=== PATIENT | female | born 1945 | race Caucasian/White ===

== ENCOUNTER 2021-04-12 15:47 | Inpatient (IN) ==
[2021-04-12 16:49] LABS: Hematocrit (blood only) 37.1 % (37-47); Hemoglobin 12.5 g/dL (12.0-16.0); Mean Corpuscular Hemoglobin 25.8 pg (25-34); Mean Corpuscular Hgb Conc 33.7 g/dL (32-36); Mean Corpuscular Volume 76.5 fL (80-100); Platelet Count 130 K/uL (130-400); RDW Coefficient of Variation 16.3 % (11.5-14.5); RDW Standard Deviation 45.5 fL (36.4-46.3); Red Blood Count 4.85 M/uL (4.2-5.4); White Blood Count 7.13 K/uL (4.8-10.8)
[2021-04-12 16:58] LABS: Alanine Aminotransferase 16 U/L (12-78); Albumin Level 3.9 gm/dl (3.4-5.0); Aspartate Aminotransferase 18 U/L (15-37); BUN Creatinine Ratio 18.3 (10-20); Blood Urea Nitrogen 30 mg/dl (7-18); Calcium 9.3 mg/dl (8.5-10.1); Carbon Dioxide 25 mmol/L (21-32); Chloride 106 mmol/L (98-107); Est GFR (African American) 35.6 ml/min; Est GFR (Non-African American) 30.7 ml/min; Glucose 82 mg/dl (70-99); Magnesium 1.6 mg/dl (1.8-2.4); Potassium 3.5 mmol/L (3.5-5.1); Sodium 138 mmol/L (136-145)
[2021-04-12 17:00] LABS: INR 1.1 (0.9-1.1); Partial Thromboplastin Time 25.6 Seconds (21.0-31.0); Prothrombin Time 10.9 Seconds (9.0-12.0)
[2021-04-12 17:01] LABS: Albumin Globulin Ratio 0.9 (0.9-2); Alkaline Phosphatase 58 U/L (45-117); Bilirubin,Total 0.7 mg/dl (0.2-1); Globulin 4.4 gm/dl (2.5-4.0); Total Protein 8.3 gm/dl (6.4-8.2)
--- NOTE | 2021-04-12 17:04 | Emergency Department Note ---
History of Present Illness General Chief complaint: Stroke/CVA Symptoms Stated complaint: DIZZINESS Time Seen by Provider: 04/12/21 16:40 History of Present Illness 75-year-old female who presents to the ED with a chief complaint of some difficulty with her stability over the past week or so. It seems to have p rogressively worsened according to the . The patient's also reports that she has been having more difficulty when she takes her pills. She has been gagging more than usual. She also has a decreased appetite. Her symptoms have been somewhat subtle for the past week. She had an outpatient CT scan of her brain today because of this instability that showed a 6 mm acute intraparenchymal hemorrhage in the left thalamus with some mild vasogenic edema. She was sent to the ED for evaluation. Home Medications Medication Instructions Recorded Confirmed Type nystatin 100,000 unit/gram topical 1 appln TOP TID PRN #30 gm 05/19/19 04/12/21 Rx cream triamcinolone acetonide 0.1 % 1 appln TOP TID PRN #30 gm 05/19/19 04/12/21 Rx topical ointment biotin 5,000 mcg sublingual tablet 5,000 mcg SUBLINGUAL DAILY 05/05/20 04/12/21 History fluconazole 200 mg tablet 200 mg PO QPM tab 05/05/20 04/12/21 History insulin glargine 100 unit/mL (3 20 - 40 units SUBCUT AMPM ml 05/05/20 04/12/21 History mL) subcutaneous pen (Basaglar KwikPen U-100 Insulin) magnesium oxide 400 mg PO DAILY tab 05/05/20 04/12/21 History denosumab 60 mg/mL subcutaneous 60 mg SUBCUT UD 08/01/20 04/12/21 History syringe (Prolia) entecavir 0.5 mg tablet 0.5 mg PO QAM 08/01/20 04/12/21 History pen needle, diabetic 32 gauge x #500 ea 08/08/20 04/12/21 Rx 532" (BD Ultra-Fine Susan Pen Needle) metoprolol tartrate 50 mg tablet 75 mg PO BID #180 tab 09/08/20 04/12/21 Rx omeprazole 20 mg capsule,delayed 20 mg PO QAM #90 cap 10/04/20 04/12/21 Rx release blood sugar diagnostic (FreeStyle #10 ea 11/03/20 04/12/21 History Lite Strips) insulin lispro 100 unit/mL 15 unit SUBCUT TID ml 11/03/20 04/12/21 History subcutaneous pen (Humalog KwikPen (U-100) Insulin) cholecalciferol (vitamin D3) 125 125 mcg PO DAILY #90 cap 11/08/20 04/12/21 Rx mcg (5,000 unit) capsule atorvastatin 40 mg tablet 40 mg PO QPM 01/10/21 04/12/21 History tacrolimus 0.5 mg capsule, 0.5 mg PO BID cap 01/10/21 04/12/21 History immediate-release aspirin 81 mg tablet,delayed 81 mg PO QPM 02/07/21 04/12/21 History release (Adult Low Dose Aspirin) trazodone 50 mg tablet 100 mg PO HS #60 tab 02/26/21 04/12/21 Rx hydralazine 50 mg tablet 75 mg PO TID 90 Days #405 tab 03/02/21 04/12/21 Rx losartan 100 mg tablet 100 mg PO QPM 04/12/21 04/12/21 History Allergies Allergy/AdvReac Type Severity Reaction Status Date / Time latex Allergy Intermediate ITCHING Verified 04/12/21 16:31 AND LOCALIZED SWELLING Penicillins Allergy Intermediate RASH Verified 04/12/21 16:31 amlodipine Allergy Mild swelling Verified 04/12/21 16:31 iodine Allergy Mild RASH Verified 04/12/21 16:31 lisinopril AdvReac Intermediate cough Verified 04/12/21 16:31 Past Med/Surg History Medical History Chronic cough DM type 2 (diabetes mellitus, type 2) IDDM Esophageal varices with hemorrhage HX OF Fall Femur fracture, right nondisplaced periprosthetic fracture 01/2021 r/t fall --> no surgical intervention Femur fracture, right History of colon polyps History of kidney stones History of stroke (10/18/19) 08/2019; balance issues HLD (hyperlipidemia) HTN (hypertension) 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 current use of immunosuppressive drug Immunosuppressive medications due to liver transplant Lung nodule being monitored Nasal congestion reason for abx [place] (nonalcoholic steatohepatitis) s/p liver transplant Nausea liver transplant meds induced Palmar erythema Sleep apnea CPAP Surgical History H/O sinus surgery History of appendectomy History of bladder surgery History of colonoscopy History of esophagogastroduodenoscopy (EGD) History of hemorrhoidectomy History of hysterectomy History of liver transplant 2019 History of right hip replacement History of tonsillectomy Right femoral fracture 08/19/2019 in [place] Post Sx -Rt hip Surgery Family History Aunt Breast cancer Mother Malignant neoplasm cervix Father Pancreatic cancer Grandmother (Paternal) No problems noted. 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 Beliefs That Will Affect Care: Worship Worship Beliefs: [facility] marital status: Current Living Situation: Spouse current occupational status: retired Feels Safe at Home: Yes Childhood Exposure to Second-Hand Smoke: Yes Dental Care, Regularly: Yes Physical Activity Frequency: Does not Exercise Seatbelt Use: always Sunscreen Use: Yes Assistive Devices: CPAP, Glasses and Walker Review of Systems A total of 10 systems reviewed and were otherwise negative Physical Exam Vital Signs Vital Signs - 24 hr 04/12/21 16:00 04/12/21 16:03 04/12/21 16:14 Temperature Source Oral Pulse Rate 63 63 Pulse Rate from SpO2 Sensor 62 Pulse Rhythm Regular Pulse Strength Normal Respiratory Rate 18 20 Respiratory Effort / Characteristics Non-Labored Spontaneous Respiratory Depth Normal Respiratory Pattern Regular Blood Pressure 190/86 H 190/86 H Blood Pressure Mean 120 120 Blood Pressure Position Sitting Pulse Oximetry 98 98 98 Oxygen Delivery Method Room Air Room Air Room Air Sepsis Recent Fever Within 48 Hours No Sepsis New/Unexplained Change in Mental Status No Sepsis Action Taken by Nursing No Action Required 04/12/21 16:41 04/12/21 17:00 04/12/21 17:31 Temperature Source Pulse Rate 61 60 Pulse Rate from SpO2 Sensor 61 61 Pulse Rhythm Pulse Strength Respiratory Rate 16 16 Respiratory Effort / Characteristics Respiratory Depth Respiratory Pattern Blood Pressure 174/96 H 165/81 H Blood Pressure Mean 122 109 Blood Pressure Position Pulse Oximetry 97 97 93 Oxygen Delivery Method Room Air Room Air Sepsis Recent Fever Within 48 Hours Sepsis New/Unexplained Change in Mental Status Sepsis Action Taken by Nursing 04/12/21 17:41 04/12/21 17:50 04/12/21 18:00 Temperature Source Pulse Rate 66 69 71 Pulse Rate from SpO2 Sensor 66 69 72 Pulse Rhythm Pulse Strength Respiratory Rate 22 18 22 Respiratory Effort / Characteristics Respiratory Depth Respiratory Pattern Blood Pressure 199/90 H 151/76 H 143/76 H Blood Pressure Mean 126 101 98 Blood Pressure Position Pulse Oximetry 97 96 98 Oxygen Delivery Method Room Air Room Air Room Air Sepsis Recent Fever Within 48 Hours Sepsis New/Unexplained Change in Mental Status Sepsis Action Taken by Nursing 04/12/21 18:10 Temperature Source Pulse Rate 73 Pulse Rate from SpO2 Sensor 72 Pulse Rhythm Pulse Strength Respiratory Rate 23 Respiratory Effort / Characteristics Respiratory Depth Respiratory Pattern Blood Pressure 139/83 Blood Pressure Mean 101 Blood Pressure Position Pulse Oximetry 98 Oxygen Delivery Method Sepsis Recent Fever Within 48 Hours Sepsis New/Unexplained Change in Mental Status Sepsis Action Taken by Nursing CONSTITUTIONAL/VITAL SIGNS: Reviewed / noted above. GENERAL: Non-toxic in appearance. INTEGUMENTARY: Warm, dry, and [place]. HEAD: Normocephalic. EYES: without scleral icterus or trauma. ENT/OROPHARYNX: clear and moist. LYMPHADENOPATHY/NECK: Is supple without lymphadenopathy or meningismus. RESPIRATORY: Clear to auscultation bilaterally. No increased work of breathing. CARDIOVASCULAR: Regular rate and rhythm. GI/ABDOMEN: Soft and nontender. No organomegaly or pulsatile mass. EXTREMITIES: Warm and well perfused. BACK: No CVA tenderness. NEUROLOGICAL: Intact without focal deficits. No facial droop. Cranial nerves II through XII are intact. No pronator drift. Cerebellar testing is grossly normal. No visual changes. PSYCHIATRIC: normal affect. MUSCULOSKELETAL: Normally developed with good muscle tone. TRIAGE NURSING DOCUMENTATION REVIEWED. Course Administered Medications Nicardipine HCl 25 mg/ Sodium (Chloride) 250 mls @ 50 mls/hr IV .Q5H [facility]; Protocol Stop: 05/12/21 17:29 Last Admin: 04/12/21 17:37 Dose: 5 mg/hr, 50 mls/hr Documented by: [id number] Cosigned by: [id number] Discontinued Medications Glucose (Glucose 10 Tabs/Tube) Confirm Administered Dose 10 tabs PO .[facility] Stop: 04/12/21 17:35 Last Admin: 04/12/21 17:38 Dose: 10 tabs Documented by: [id number] Miscellaneous (Stat Iv Infusion Titration Per Protocol) 1 ea N/A NOW STA Stop: 04/12/21 17:18 Last Admin: 04/12/21 17:38 Dose: 1 ea Documented by: [id number] Medical Decision Making Differential Diagnosis Differential includes acute coronary syndrome, myocardial infarction, CVA, TIA, anemia, infection, pneumonia, UTI, pyelonephritis, poor nutrition, dehydration, electrolyte disturbance,hypoglycemia. Medical Records Attestation: I reviewed the patient's medical records. Home Medications Current Medication List: was personally reviewed by me Laboratory Data Attestation: I reviewed the patient's lab results. Result diagrams: 04/12/21 16:10 04/12/21 16:10 Lab Results 04/12/21 04/12/21 04/12/21 Range/Units 16:10 16:10 16:10 WBC 7.13 (4.8-10.8) K/uL RBC 4.85 (4.2-5.4) M/uL Hgb 12.5 (12.0-16.0) g/dL Hct 37.1 (37-47) % MCV 76.5 L (80-100) fL MCH 25.8 (25-34) pg MCHC 33.7 (32-36) g/dL RDW Std Deviation 45.5 (36.4-46.3) fL RDW Coeff of Sindy 16.3 H (11.5-14.5) % Plt Count 130 (130-400) K/uL MPV 10.0 (7.4-10.4) fL PT 10.9 (9.0-12.0) Seconds INR 1.1 (0.9-1.1) APTT 25.6 (21.0-31.0) Seconds PTT Ratio 1.0 Sodium 138 (136-145) mmol/L Potassium 3.5 (3.5-5.1) mmol/L Chloride 106 (98-107) mmol/L Carbon Dioxide 25 (21-32) mmol/L Anion Gap 7.0 (3-11) BUN 30 H (7-18) mg/dl Creatinine 1.64 H (0.6-1.2) mg/dl Est Cr Clr Drug Dosing Not Reportable Est GFR ( Amer) 35.6 ml/min Est GFR (Non-Af Amer) 30.7 ml/min BUN/Creatinine Ratio 18.3 (10-20) Glucose 82 (70-99) mg/dl POC Glucose (70-99) mg/dl Calcium 9.3 (8.5-10.1) mg/dl Magnesium 1.6 L (1.8-2.4) mg/dl Total Bilirubin 0.7 (0.2-1) mg/dl AST 18 (15-37) U/L ALT 16 (12-78) U/L Alkaline Phosphatase 58 (45-117) U/L Total Protein 8.3 H (6.4-8.2) gm/dl Albumin 3.9 (3.4-5.0) gm/dl Globulin 4.4 H (2.5-4.0) gm/dl Albumin/Globulin Ratio 0.9 (0.9-2) COVID-19 Eval Order 04/12/21 04/12/21 Range/Units 16:31 17:44 WBC (4.8-10.8) K/uL RBC (4.2-5.4) M/uL Hgb (12.0-16.0) g/dL Hct (37-47) % MCV (80-100) fL MCH (25-34) pg MCHC (32-36) g/dL RDW Std Deviation (36.4-46.3) fL RDW Coeff of Sindy (11.5-14.5) % Plt Count (130-400) K/uL MPV (7.4-10.4) fL PT (9.0-12.0) Seconds INR (0.9-1.1) APTT (21.0-31.0) Seconds PTT Ratio Sodium (136-145) mmol/L Potassium (3.5-5.1) mmol/L Chloride (98-107) mmol/L Carbon Dioxide (21-32) mmol/L Anion Gap (3-11) BUN (7-18) mg/dl Creatinine (0.6-1.2) mg/dl Est Cr Clr Drug Dosing Est GFR ( Amer) ml/min Est GFR (Non-Af Amer) ml/min BUN/Creatinine Ratio (10-20) Glucose (70-99) mg/dl POC Glucose 84 (70-99) mg/dl Calcium (8.5-10.1) mg/dl Magnesium (1.8-2.4) mg/dl Total Bilirubin (0.2-1) mg/dl AST (15-37) U/L ALT (12-78) U/L Alkaline Phosphatase (45-117) U/L Total Protein (6.4-8.2) gm/dl Albumin (3.4-5.0) gm/dl Globulin (2.5-4.0) gm/dl Albumin/Globulin Ratio (0.9-2) COVID-19 Eval Order Covid19 at [facility] Imaging Data Radiologist's Impression: Chest X-Ray 04/12/21 16:32 XR chest 1V portable HISTORY: 75 years-old Female stroke alert acute strokelike symptoms COMPARISON: Chest radiograph 08/28/2018 TECHNIQUE: Portable AP view of the chest FINDINGS: Cardiomediastinal and hilar silhouettes are within normal limits. Mitral annular calcifications. Patient is mildly rotated. No pneumothorax, pleural effusion, airspace consolidation or overt pulmonary edema. Degenerative changes of the shoulders and spine. IMPRESSION: No acute process. ACT 112: Negative or not required by law. The above report was generated using voice recognition software. It may contain grammatical, syntax or spelling errors. Electronically signed by: Jak Chaney M.D. 04/12/2021 5:08 PM ECG Data Attestation: I personally reviewed and interpreted this ECG as follows: Additional Comments: Twelve-lead EKG: Per my interpretationThere is a normal sinus rhythm at a rate of 62. No ST elevation. No PVCs. Normal QTC. MDM Narrative Patient presents with a 6 mm acute intraparenchymal hemorrhage of the left thalamus with some mild vasogenic edema. Her symptoms are somewhat minimal and consist of some worsening of her baseline stability and some gagging more on her oral medications as well as decreased appetite. The patient CBC and chemistry panel was unremarkable with exception of a BUN of 30 and creatinine of 1.64. Chest x-ray was negative for acute disease. EKG shows a normal sinus rhythm. I did speak with Dr. Kiran about the test results. As the symptoms started approximately week ago, we feel the patient is stable for admission here with blood pressure control. The patient was started on nicardipine drip as her blood pressure was elevated. Dr. Kiran did recommend a repeat CT scan of the head without contrast at 9 PM to assure no significant change and a CTA of the head might be beneficial to check for aneurysms. She also recommended an MRI with contrast at some point. Hospitalist will see the patient for admission. Impression & Plan Cerebrovascular accident, hemorrhagic, Cerebrovascular accident (CVA) of thalamus Discharge Plan Visit Data Chief Complaint: Stroke/CVA Symptoms Stated Complaint: DIZZINESS ED Provider: Kyle Ponce Discharge Problem: Cerebrovascular accident, hemorrhagic, Cerebrovascular accident (CVA) of thalamus Patient Disposition: Being Evaluated by Hospitalist Forms Stand Alone Forms: [facility] [place], Virtual Emergency Department, Important Visit Information Prescriptions Prescriptions: No Action (DME) pen needle, diabetic [BD Ultra-Fine Susan Pen Needle] 32 gauge x 5/32" needle See Rx Instructions .ROUTE .MEDSUPPLY Qty: 500 RF: 3 metoprolol tartrate 50 mg tablet 75 mg PO BID Qty: 180 RF: 3 omeprazole 20 mg capsule,delayed release(DR/EC) 20 mg PO QAM Qty: 90 RF: 3 trazodone 50 mg tablet 100 mg PO HS Qty: 60 RF: 5 hydralazine 50 mg tablet 75 mg PO TID 90 Days Qty: 405 RF: 3 nystatin 100,000 unit/gram cream 1 appln TOP TID PRN (Reason: itching) Qty: 30 RF: 3 triamcinolone acetonide 0.1 % ointment 1 appln TOP TID PRN (Reason: itching) Qty: 30 RF: 3 (DME) FreeStyle Lite Strips Strip See Rx Instructions .ROUTE .MEDSUPPLY Qty: 10 RF: 0 fluconazole 200 mg tablet 200 mg PO QPM RF: 0 Basaglar KwikPen U-100 Insulin 100 unit/mL (3 mL) insulin pen 20 - 40 units SUBCUT AMPM RF: 0 biotin 5,000 mcg tablet, sublingual 5,000 mcg sublingual DAILY RF: 0 insulin lispro [Humalog KwikPen Insulin] 100 unit/mL insulin pen 15 unit SUBCUT TID RF: 0 atorvastatin 40 mg tablet 40 mg PO QPM RF: 0 magnesium oxide 400 mg magnesium tablet 400 mg PO DAILY RF: 0 tacrolimus 0.5 mg capsule 0.5 mg PO BID RF: 0 cholecalciferol (vitamin D3) 125 mcg (5,000 unit) capsule 125 mcg PO DAILY Qty: 90 RF: 2 entecavir 0.5 mg tablet 0.5 mg PO QAM RF: 0 Prolia 60 mg/mL syringe 60 mg subcut UD RF: 0 losartan 100 mg tablet 100 mg PO QPM RF: 0 aspirin [Adult Low Dose Aspirin] 81 mg tablet,delayed release (DR/EC) 81 mg PO QPM RF: 0 Referrals Referrals: Indira Jordan MD [Primary Care Provider] -
--- NOTE | 2021-04-12 17:09 | XRay Report ---
XR chest 1V portable HISTORY: 75 years-old Female stroke alert acute strokelike symptoms COMPARISON: Chest radiograph 08/28/2018 TECHNIQUE: Portable AP view of the chest FINDINGS: Cardiomediastinal and hilar silhouettes are within normal limits. Mitral annular calcifications. Sirisha ent is mildly rotated. No pneumothorax, pleural effusion, airspace consolidation or overt pulmonary e shanna. Degenerative changes of the shoulders and spine. IMPRESSION: No acute process. ACT 112: Negative or not required by law. The above report was generated using voice recognition software. It may contain grammatical, syntax o r spelling errors. Electronically signed by: Jak Chaney M.D. 04/12/2021 5:08 PM
[2021-04-12] MEDS ORDERED: STAT IV Infusion **Titration per Protocol STA (17:17)
[2021-04-12] MEDS ORDERED: niCARdipine 25 MG in SODIUM CHLORIDE 0.9% 240 ML IV SCH (17:30)
--- NOTE | 2021-04-12 17:31 | History & Physical Report ---
Date of Service April 12, 2021 Assessment & Plan (1) Cerebrovascular accident (CVA) of thalamus: Plan: 75yo female with a history of CVA, DM2, HTN, HLD, cirrhosis secondary to MONTGOM[facility] s/p liver transplant (2019), and hip fracture (2019) presents with intraparenchymal hemorrhage. Acute intraparenchymal hemorrhage CT head showing 6mm acute intraparenchymal hemorrhage of the left thalamus with mild surrounding vasogenic edema in addition to a subcentimeter [id number] lacunar infarct of the right thalamus (new from 02/2020) ED provider discussed with neurology; advised admission for BP control, repeat CT head this evening, consider CTA to evaluate for aneurysm, consider MRI, no immediate neurosurgical intervention indicated Admit to PCU telemetry BP 160-200/70-90 in ED, brought under control with nicardipine gtt, since discontinued BP management: First-line: labetalol IV 10mg q4h prn SBP>140 Second-line: hydralazine IV 10mg q4h prn SBP>140 unresponsive to labetalol SBP goal 110-140 Holding home antihypertensives, ASA, atorvastatin Repeat CT head ordered for 21:00 Elevate head of bed to 30 degrees Neurology consulted PT/OT ordered, speech eval ordered Fall precautions Neuro checks q2h HTN See above DM2 HbA1c 6.5% (11/03/20), repeat pending Patient's home regimen held on admission Continue sliding-scale insulin, hypoglycemic protocol BSG checks q6h while NPO, D5NS@80mL/hr while NPO (two bags ordered on admission, reevaluate in AM) HLD Statin held as above Lipid profile pending History of liver transplant for liver cirrhosis secondary to MONTGOMERY Transaminases wnl Continue home tacrolimus, entecavir CKD Creatinine 1.64 on admission, baseline 1.3-1.6 Avoid nephrotoxins Osteoporosis Continue home denosumab GERD Continue home omeprazole Chronic vulvitis Continue home fluconazole, nystatin cream prn itching, triamcinolone prn itching Insomnia Continue home trazodone FEN: NPO, D5NS@80mL/hr while NPO (two bags ordered) Code status: DNR/DNI, I discussed this with patient DVT ppx: SCDs Held home meds: ASA, metoprolol, losartan, glargine, lispro, hydralazine PO, vitamin D3, biotin Isolation: none Consults: neurology PT/OT: ordered Dispo: PCU telemetry (2) Status post liver transplantation: (3) Osteoporosis: (4) Liver cirrhosis secondary to [facility]TG[facility]: (5) Acid reflux disease: History of Present Illness Chief Complaint: gait instability Primary Care Provider: Indira Soler MD 75yo female with a history of CVA, DM2, HTN, HLD, cirrhosis secondary to [facility] s/p liver transplant (2019), and hip fracture (2019) presents with i ntraparenchymal hemorrhage. Patient reports gradually worsening gait instability for the past few weeks which has been acutely worsening over the past week, without fall. Patient was discussing this with PCP on 04/11, who then ordered an outpatient CT, which revealed a 6mm intraparenchymal hemorrhage of the left thalamus with mild surrounding vasogenic edema. Patient endorses increased difficulty swallowing over the past few weeks and has been gagging on her pills. Patient endorses vertigo over the past few weeks, as well as chronic nausea and poor appetite since her liver transplant. Patient has been monitoring her BP at home but does not have the numbers with her. Patient had a liver transplant two year years ago at [facility] and is on tacrolimus. Patient also has had a cough for "maybe a little over a year" that was in the process of being worked up by [facility], patient notes that her physician thinks it is "valley fever". Patient denies current or recent fever, chills, chest pain, palpitations, SOB, abdominal pain, vomiting, constipation, diarrhea, dysuria, numbness, tingling, or other symptoms. Allergies Allergy/AdvReac Type Severity Reaction Status Date / Time latex Allergy Intermediate ITCHING Verified 04/12/21 16:31 AND LOCALIZED SWELLING Penicillins Allergy Intermediate RASH Verified 04/12/21 16:31 amlodipine Allergy Mild swelling Verified 04/12/21 16:31 iodine Allergy Mild RASH Verified 04/12/21 16:31 lisinopril AdvReac Intermediate cough Verified 04/12/21 16:31 Home Medications Medication Instructions Recorded Confirmed Type nystatin 100,000 unit/gram topical 1 appln TOP TID PRN #30 gm 05/19/19 04/12/21 Rx cream triamcinolone acetonide 0.1 % 1 appln TOP TID PRN #30 gm 05/19/19 04/12/21 Rx topical ointment biotin 5,000 mcg sublingual tablet 5,000 mcg SUBLINGUAL DAILY 05/05/20 04/12/21 History fluconazole 200 mg tablet 200 mg PO QPM tab 05/05/20 04/12/21 History insulin glargine 100 unit/mL (3 20 - 40 units SUBCUT AMPM ml 05/05/20 04/12/21 History mL) subcutaneous pen (Basaglar KwikPen U-100 Insulin) magnesium oxide 400 mg PO DAILY tab 05/05/20 04/12/21 History denosumab 60 mg/mL subcutaneous 60 mg SUBCUT UD 08/01/20 04/12/21 History syringe (Prolia) entecavir 0.5 mg tablet 0.5 mg PO QAM 08/01/20 04/12/21 History pen needle, diabetic 32 gauge x #500 ea 08/08/20 04/12/21 Rx 5/32" (BD Ultra-Fine Susan Pen Needle) metoprolol tartrate 50 mg tablet 75 mg PO BID #180 tab 09/08/20 04/12/21 Rx omeprazole 20 mg capsule,delayed 20 mg PO QAM #90 cap 10/04/20 04/12/21 Rx release blood sugar diagnostic (FreeStyle #10 ea 11/03/20 04/12/21 History Lite Strips) insulin lispro 100 unit/mL 15 unit SUBCUT TID ml 11/03/20 04/12/21 History subcutaneous pen (Humalog KwikPen (U-100) Insulin) cholecalciferol (vitamin D3) 125 125 mcg PO DAILY #90 cap 11/08/20 04/12/21 Rx mcg (5,000 unit) capsule atorvastatin 40 mg tablet 40 mg PO QPM 01/10/21 04/12/21 History tacrolimus 0.5 mg capsule, 0.5 mg PO BID cap 01/10/21 04/12/21 History immediate-release aspirin 81 mg tablet,delayed 81 mg PO QPM 02/07/21 04/12/21 History release (Adult Low Dose Aspirin) trazodone 50 mg tablet 100 mg PO HS #60 tab 02/26/21 04/12/21 Rx hydralazine 50 mg tablet 75 mg PO TID 90 Days #405 tab 03/02/21 04/12/21 Rx losartan 100 mg tablet 100 mg PO QPM 04/12/21 04/12/21 History Past Med/Surg History Medical History Chronic cough DM type 2 (diabetes mellitus, type 2) IDDM Esophageal varices with hemorrhage HX OF Fall Femur fracture, right nondisplaced periprosthetic fracture 01/2021 r/t fall --> no surgical intervention Femur fracture, right History of colon polyps History of kidney stones History of stroke (10/18/19) 08/2019; balance issues HLD (hyperlipidemia) HTN (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 Immunosuppressive medications due to liver transplant Lung nodule being monitored Nasal congestion reason for abx MONTGOMERY (nonalcoholic steatohepatitis) s/p liver transplant Nausea liver transplant meds induced Palmar erythema Sleep apnea CPAP Surgical History H/O sinus surgery History of appendectomy History of bladder surgery History of colonoscopy History of esophagogastroduodenoscopy (EGD) History of hemorrhoidectomy History of hysterectomy History of liver transplant 2019 History of right hip replacement History of tonsillectomy Right femoral fracture 08/19/2019 in [place] Post Sx -Rt hip Surgery Family History Aunt Breast cancer Mother Malignant neoplasm cervix Father Pancreatic cancer Grandmother (Paternal) No problems noted. Denies family history of Ovarian cancer Prostate cancer Myocardial infarction Social History Smoking Status: Never smoker Hx Alcohol Use: No Hx Substance Use: No Preferred Language: Uzbek Communication Ability: Effective Visual Impairment: No Limitations Hearing Ability: Normal Director Of Diagnostic Imaging Required: No Beliefs That Will Affect Care: None marital status: Current Living Situation: Spouse current occupational status: retired Other Information That Helps Us Care for You: No Feels Safe at Home: Yes Safety Concerns: Feels Safe At This Time Childhood Exposure to Second-Hand Smoke: Yes Dental Care, Regularly: Yes Physical Activity Frequency: Does not Exercise Seatbelt Use: always Sunscreen Use: Yes Assistive Devices: Glasses and Walker Review of Systems Review of Systems: See HPI Physical Exam Physical Exam: Constitutional: well-appearing, no acute distress, laying comfortably in bed HEENT: NCAT, no conjunctival injection, MMM CV: regular rhythm, grade 3/6 systolic crescendo-decrescendo murmur appreciated, extremities well-perfused, no LE edema Resp: CTABL, no wheezes/rales/rhonchi appreciated, no increased work of breathing, occasional coughing GI: soft, nondistended, nontender, BS normoactive MSK: no gross deformities appreciated Skin: warm, dry, no rash appreciated Neuro: AOx4, PERRLA, CN2-12 grossly intact, no focal neurological deficits appreciated, upper extremity strength 5/5 bilaterally, lower extremity strength 4/5 bilaterally, speech not slurred Psych: cooperative, pleasant, appropriate rate/volume/quantity of speech Results & Data Results & Data ([facility]) Vital Signs (Past 12 Hours) Vital Signs Pulse Resp BP Pulse Ox 04/12/21 17:00 61 16 174/96 H 97 04/12/21 16:41 97 04/12/21 16:14 98 04/12/21 16:03 63 20 190/86 H 98 04/12/21 16:00 63 18 190/86 H 98 Supervising Physician Co-Signing Physician Notes During face to face encounter with patient, obtained a physical and history. My history and physcial examination did not differ from above. I reviewed above note and agree with it. I discussed plan with Dr. Murillo and the patient. All questions were answered. Patient will be admitted for intraparenchymal hemorrhage. Will recheck CT scan of the head to reassess hemorrhage, Resident Activity Tracking Resident Involvement: Resident Care Provided Care Provided: Adult [facility]
[2021-04-12] MEDS ORDERED: GLUCOSE 10 TABS/TUBE PO ONE (17:34)
[2021-04-12] MEDS ORDERED: hydrALAZINE HCL 20 MG/ML VIAL IV PRN (19:43)
[2021-04-12] MEDS ORDERED: D5W AND NSS 1,000 ML IV SCH (20:17)
[2021-04-12] MEDS ORDERED: GLUCOSE 40% GEL 15 GM TUBE PO PRN (20:24)
[2021-04-12] MEDS ORDERED: GLUCAGON FOR INJ 1 MG VIAL SQ PRN (20:24)
[2021-04-12] MEDS ORDERED: CARBOHYDRATES FOR HYPOGLYCEMIA PO PRN (20:24)
[2021-04-12] MEDS ORDERED: ALUMINUM/MAGNESIUM SUSP 30 ML UDC PO PRN (20:24)
[2021-04-12] MEDS ORDERED: GLUCOSE 10 TABS/TUBE PO PRN (20:24)
[2021-04-12] MEDS ORDERED: DEXTROSE 50% 50 ML SYRINGE IV PRN (20:24)
[2021-04-12] MEDS ORDERED: MAGNESIUM HYDROXIDE SUSP 30 ML UDC PO PRN (20:24)
[2021-04-12] MEDS ORDERED: TRIAMCINOLONE ACET 0.1% OINT 15 GM TUBE TOP PRN (20:24)
[2021-04-12] MEDS ORDERED: NYSTATIN CR 15 GM TUBE EXT PRN (20:24)
[2021-04-12] MEDS ORDERED: POLYETHYLENE (MIRALAX) 17 GM PACK PO PRN (20:24)
[2021-04-12] MEDS ORDERED: INSULIN ASPART 100 UNITS/ML 3 ML PEN SC SCH (21:00)
[2021-04-12] MEDS: ONDANSETRON INJ 2 MG/ML 2 ML VIAL IV PRN (21:34)
[2021-04-12] MEDS: traZODone HCL 100 MG TAB PO SCH ×2 (22:50→23:28)
[2021-04-12] MEDS: TACROLIMUS 0.5 MG CAP PO SCH ×2 (22:50→23:28)
[2021-04-12] MEDS: FLUCONAZOLE 100 MG TAB PO SCH ×2 (22:51→23:28)
[2021-04-12] MEDS: LABETALOL HCL IV 5 MG/ML 20ML IV PRN (23:46)
[2021-04-13] MEDS: LABETALOL HCL IV 5 MG/ML 20ML IV PRN ×2 (04:26→20:32)
[2021-04-13] MEDS: SODIUM CHLORIDE 0.9% 1000ML 1,000 ML IV SCH ×2 (05:30→17:10)
[2021-04-13] MEDS: INSULIN ASPART 100 UNITS/ML 3 ML PEN SC SCH ×4 (05:30→23:37)
--- NOTE | 2021-04-13 07:56 | CT Scan Report ---
CT OF THE HEAD WITHOUT CONTRAST CLINICAL HISTORY: intraparenchymal hemorrhage COMPARISON STUDY: Head CT April 12, 2021. CT DOSE: 853.38 mGy.cm TECHNIQUE: Helical axial images of the head were obtained without IV contrast. Automated exposure con trol was utilized for the study. A dose lowering technique was utilized adhering to the principles o f ALARA. FINDINGS: A small 6 mm focus of acute intraparenchymal hemorrhage within the left thalamus with mild associated vasogenic edema is similar to head CT of April 12, 2021. No additional sites of acute h emorrhage are present. A right thalamic lacunar infarct is again noted. Ventricular system is stable. Basal cisterns are patent. There are no extra-axial collections. White matter hypodensity suggests s mall vessel disease. There is no acute calvarial fracture. IMPRESSION: No significant change in a 6 mm focus of acute intraparenchymal hemorrhage within the le ft thalamus since head CT performed earlier today. ACT 112: Negative or not required by law. Electronically signed by: Herminio Velasco M.D. 04/13/2021 7:54 AM
[2021-04-13] MEDS: ONDANSETRON INJ 2 MG/ML 2 ML VIAL IV PRN (08:25)
[2021-04-13 08:32] LABS: Hematocrit (blood only) 31.8 % (37-47); Hemoglobin 10.6 g/dL (12.0-16.0); Mean Corpuscular Hemoglobin 25.2 pg (25-34); Mean Corpuscular Hgb Conc 33.3 g/dL (32-36); Mean Corpuscular Volume 75.5 fL (80-100); RDW Coefficient of Variation 16.3 % (11.5-14.5); RDW Standard Deviation 44.5 fL (36.4-46.3); Red Blood Count 4.21 M/uL (4.2-5.4); White Blood Count 4.98 K/uL (4.8-10.8)
[2021-04-13 08:51] LABS: Basophils # (auto) 0.01 K/uL (0-0.2); Basophils % (auto) 0.2 %; Eosinophils # (auto) 0.03 K/uL (0-0.5); Eosinophils % (auto) 0.6 %; Lymphocytes % (auto) 26.1 %; Mean Platelet Volume 9.8 fL (7.4-10.4); Monocytes # (auto) 0.37 K/uL (0.11-0.59); Monocytes % (auto) 7.4 %; Neutrophils # (auto) 3.27 K/uL (1.4-6.5); Neutrophils % (auto) 65.7 %; Platelet Count 94 K/uL (130-400); Platelet Estimate Decreased (Normal)
[2021-04-13 09:00] LABS: BUN Creatinine Ratio 19.6 (10-20); Calcium 8.5 mg/dl (8.5-10.1); Creatinine Clr Calc Pharmacy 27.1 ml/min; Est GFR (African American) 36.7 ml/min; Est GFR (Non-African American) 31.6 ml/min; Potassium 3.6 mmol/L (3.5-5.1)
[2021-04-13] MEDS: PANTOprazole 40 MG TAB PO SCH (10:24)
[2021-04-13] MEDS: TACROLIMUS 0.5 MG CAP PO SCH ×2 (10:24→20:37)
--- NOTE | 2021-04-13 11:29 | Magnetic Resonance Report ---
MRI OF THE BRAIN WITHOUT CONTRAST CLINICAL HISTORY: intraparenchymal hemorrhage COMPARISON STUDY: February 02, 2020. Also correlation is made with CT of the head performed on April FINDINGS: Sagittal T1, axial diffusion, proton density and T2 weighted axial, coronal FLAIR, and axial T1-weigh roberto images were acquired. No intra or extra-axial mass lesions are visualized Axial diffusion-weighted images reveal no evidence of acute or subacute infarction. Heterogeneous sig nal is seen within left thalamus, within area of recently seen hemorrhage which shows increasing and decreased signal on ACT map which could represent blood product from recent hemorrhage. Multiple foci of magnetic susceptibility on GRE sequence are seen throughout the periventricular and subcortical white matter bilaterally which might represent prior areas of small hemorrhage which were not seen on recent CT of the brain. GRE sequence was not performed during prior. Atrophic changes of brain parenchyma are seen and associated with mild ex vacuo dilatation of ventric les. Ventricles are midline. Stable area of fluid signal is seen within manish and unchanged since prior. Proton density T2-weighted and FLAIR images reveal scattered foci of increased T2 signal within the w roque matter, likely on a small vessel basis. There are no abnormal flow voids. IMPRESSION: 1. Magnetic susceptibility is seen within left the lateral manish, within area of recent intraparenchy mal hemorrhage. Multiple foci of magnetic susceptibility is seen within periventricular and subcortic al white matter bilaterally likely representing sequela from the prior areas of small hemorrhage whic h might represent embolic phenomena versus other etiology. Please correlate above-mentioned findings with cardiac abnormalities, prior history of neoplastic process or infectious etiology. 2. No evidence of midline shift or space occupying lesions. Atrophic changes of brain parenchyma ass ociated with ex vacuo dilatation of ventricles. 3. Chronic small vessel ischemia. 4. No evidence of restricted diffusion in the large vascular territory seen to suggest acute vascula r ischemia/infarct. 5. Stable focal areas of fluid signal within manish as well as multiple lacunar infarcts within white matter. There also seen during recent CT of the brain. 6. The rest of findings as above. ACT 112: Negative or not required by law. The above report was generated using voice recognition software. It may contain grammatical, syntax o r spelling errors. Electronically signed by: Millie Barnes DO 04/13/2021 11:28 AM
[2021-04-13] MEDS: MAGNESIUM OXIDE 400 MG TAB PO SCH (12:18)
--- NOTE | 2021-04-13 14:00 | Neurology Consultation ---
Date of Consultation April 13, 2021 Assessment & Plan (1) ICH (intracerebral hemorrhage): Goldie Augustine is a 75 yo woman w/ PMH of HTN, HLD, h/o kidney stone, CKD, h/o stroke with residual balance issues and h/o liver transplant who p/t [facility] with subacute onset of swallowing difficulty and gait difficulties Symptom localization: left thalamus Stroke mechanism: uncontrolled HTN most likely Stroke WorkUp: - CT head: shows small left thalamic hemorrhage with no IVH, hypodensity in the right thalamus representing chronic encephalomalacia from prior stroke, and moderate generalized atrophy. Repeat CTH stable. - MRI brain: shows very small acute infarct in the left thalamus associated with the thalamic hemorrhage, chronic infarct in the right thalamus, multiple lobar microhemorrhages (5) the largest being in the left parietal lobe, re- demonstration of the left thalamic hemorrhage, moderate SVID with moderate generalized atrophy and ex vacuo dilation - MRA head/neck: pending (ordered) - Telemetry: pending - A1c: 6.5 - FLP: 60 Stroke Management: - Acute treatment: BP control - Continuous cardiac monitoring - Vitals, Neurochecks, NIHSS per unit routine - BP parameters: SBP CAP 140, IV labetalol or nicardipine gtt to achieve CAP - Obtain MRA head and neck without contrast to r/o underlying vascular lesion at site of ICH - Consult speech, PT, OT for supportive management - Will budget counselor concerning stroke education, smoking cessation, healthy diet, physical activity, weight loss - Follow up with PCP for assistance with outpatient goals (BP <130/80, LDL <70, A1c <7) - Follow up in neurology clinic in 6-8 weeks with SH[facility]agne Secondary Stroke Prevention: - Antiplatelet: hold in setting of ICH. Would continue to hold for 30 days post hospitalization, repeat CTH to ensure stability and then restart if risk of ischemic stroke is deemed higher than risk of further microhemorrhages (meets criteria for CAA) - Anticoagulation: Not indicated at this time - Statin: continue home atorvastatin 40mg daily HTN: - BP parameters, as above FEN/GI: - Diet: NPO until cleared by Speech evaluation - Monitor lytes and replete PRN Glucose Control: - Sliding scale insulin and accuchecks per primary team to avoid hyperglycemia # Fatigue: non-specific symptom unlikely to be related to her CTH findings - check B12, TSH, blood culture and tacrolimus levels (ordered) Thank you for this interesting consult. Plan of care was discussed with primary team. Please call with any questions. (2) Diabetes type 2, controlled: (3) Hyperlipidemia: (4) Hypertension: (5) Status post liver transplantation: (6) CKD (chronic kidney disease): History of Present Illness Attending Physician: Royal Storey History of Present Illness Goldie Augustine is a 75 yo woman w/ PMH of HTN, HLD, h/o kidney stone, CKD, h/o stroke with residual balance issues and h/o liver transplant who p/t [facility] with subacute onset of swallowing difficulty and gait difficulties. DIP BRAZIER about one week ago (~04/06/21). In the ED, She was afebrile, BP 190/86, heart rate 63, respiratory rate 18, satting 98% on room air. Labs notable for WBC 7.13, hemoglobin 12.5, platelets 130, sodium 138, creatinine 1.64, glucose 82, INR 1.1, Magnesium low at 1.6, LFTs within normal, Covid negative. Chest x-ray showed no pneumonia. EKG showed NSR.Imaging independently reviewed. CT head shows small left thalamic hemorrhage with no IVH, hypodensity in the right thalamus representing chronic encephalomalacia from prior stroke, and moderate generalized atrophy. MRI brain shows very small acute infarct in the left thalamus associated with the thalamic hemorrhage, chronic infarct in the right thalamus, multiple lobar microhemorrhages (5) the largest being in the left parietal lobe, re-demon stration of the left thalamic hemorrhage, moderate SVID with moderate generalized atrophy and ex vacuo dilation. Repeat CT head shows stable ICH volume. She is on ASA/statin at home. On examination, she reports that she was in her normal state of health until several weeks ago when she noticed an insidious and progressive decline in her level of energy affecting her ability to ambulate around. She notes that she also had some mild nausea but no vomiting. Denies any headache, vision loss, new numbness/tingling/weakness. She denies any recent changes to medications and has been taking her aspirin, statin and tacrolimus as prescribed. Denies any recent illness or injury. Reports that she had her liver transplant in 2018 and last saw [facility] in June 2020. Of note, her review of systems was also positive for formal visual hallucinations that are new within the time that she has been having decreased energy levels. Allergies Allergy/AdvReac Type Severity Reaction Status Date / Time latex Allergy Intermediate ITCHING Verified 04/12/21 16:31 AND LOCALIZED SWELLING Penicillins Allergy Intermediate RASH Verified 04/12/21 16:31 amlodipine Allergy Mild swelling Verified 04/12/21 16:31 iodine Allergy Mild RASH Verified 04/12/21 16:31 lisinopril AdvReac Intermediate cough Verified 04/12/21 16:31 Home Medications Medication Instructions Recorded Confirmed Type nystatin 100,000 unit/gram topical 1 appln TOP TID PRN #30 gm 05/19/19 04/12/21 Rx cream triamcinolone acetonide 0.1 % 1 appln TOP TID PRN #30 gm 05/19/19 04/12/21 Rx topical ointment biotin 5,000 mcg sublingual tablet 5,000 mcg SUBLINGUAL DAILY 05/05/20 04/12/21 History fluconazole 200 mg tablet 200 mg PO QPM tab 05/05/20 04/12/21 History insulin glargine 100 unit/mL (3 20 - 40 units SUBCUT AMPM ml 05/05/20 04/12/21 History mL) subcutaneous pen (Basaglar KwikPen U-100 Insulin) magnesium oxide 400 mg PO DAILY tab 05/05/20 04/12/21 History denosumab 60 mg/mL subcutaneous 60 mg SUBCUT UD 08/01/20 04/12/21 History syringe (Prolia) entecavir 0.5 mg tablet 0.5 mg PO QAM 08/01/20 04/12/21 History pen needle, diabetic 32 gauge x #500 ea 08/08/20 04/12/21 Rx 5/32" (BD Ultra-Fine Susan Pen Needle) metoprolol tartrate 50 mg tablet 75 mg PO BID #180 tab 09/08/20 04/12/21 Rx omeprazole 20 mg capsule,delayed 20 mg PO QAM #90 cap 10/04/20 04/12/21 Rx release blood sugar diagnostic (FreeStyle #10 ea 11/03/20 04/12/21 History Lite Strips) insulin lispro 100 unit/mL 15 unit SUBCUT TID ml 11/03/20 04/12/21 History subcutaneous pen (Humalog KwikPen (U-100) Insulin) cholecalciferol (vitamin D3) 125 125 mcg PO DAILY #90 cap 11/08/20 04/12/21 Rx mcg (5,000 unit) capsule atorvastatin 40 mg tablet 40 mg PO QPM 01/10/21 04/12/21 History tacrolimus 0.5 mg capsule, 0.5 mg PO BID cap 01/10/21 04/12/21 History immediate-release aspirin 81 mg tablet,delayed 81 mg PO QPM 02/07/21 04/12/21 History release (Adult Low Dose Aspirin) trazodone 50 mg tablet 100 mg PO HS #60 tab 02/26/21 04/12/21 Rx hydralazine 50 mg tablet 75 mg PO TID 90 Days #405 tab 03/02/21 04/12/21 Rx losartan 100 mg tablet 100 mg PO QPM 04/12/21 04/12/21 History Patient History Medical History Chronic cough DM type 2 (diabetes mellitus, type 2) IDDM Esophageal varices with hemorrhage HX OF Fall Femur fracture, right nondisplaced periprosthetic fracture 01/2021 r/t fall --> no surgical intervention Femur fracture, right History of colon polyps History of kidney stones History of stroke (10/18/19) 08/2019; balance issues HLD (hyperlipidemia) HTN (hypertension) group home current use of immunosuppressive drug Immunosuppressive medications due to liver transplant Lung nodule being monitored Nasal congestion reason for abx MONTGOMERY (nonalcoholic steatohepatitis) s/p liver transplant Nausea liver transplant meds induced Palmar erythema Sleep apnea CPAP Surgical History H/O sinus surgery History of appendectomy History of bladder surgery History of colonoscopy History of esophagogastroduodenoscopy (EGD) History of hemorrhoidectomy History of hysterectomy History of liver transplant 2019 History of right hip replacement History of tonsillectomy Right femoral fracture 08/19/2019 in [place] Post Sx -Rt hip Surgery Family History Aunt Breast cancer Mother Malignant neoplasm cervix Father Pancreatic cancer Grandmother (Paternal) No problems noted. 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 Exam (Neuro) Physical Exam: General Exam: GEN: NAD, sitting in chair HEENT: No conjunctival injection, no rhinorrhea CV: RRR on monitor, no significant edema. PULM: Nonlabored respirations on room air. Neuro Exam: MS: Awake and Alert. Oriented to person, place, and month but not year. Speech fluent and appropriate without dysarthria or paraphasic errors. Language intact including naming, comprehension, repetition. Cognition and memory grossly intact. Attention intact. No neglect. CN: Visual downing full. Unable to visualize fundi on fundoscopic exam. PERRLA OU. EOMI without nystagmus. Facial sensation intact to LT. Facial muscles full and symmetric. Hearing intact to conversation. Uvula midline with symmetric palatal elevation. Shoulder shrug normal. Tongue midline. MOTOR: Normal bulk and tone. No pronator drift. BUE strength 5/5 at deltoids, biceps, triceps, wrist flexors and extensors, and finger flexors bilaterally. BLE strength 5-/5 at iliopsoas, hamstrings, quadriceps, tibialis anterior, and gastrocnemius bilaterally. REFLEXES: 1+ at biceps, triceps, brachioradialis, trace patella, and absent Achilles bilaterally. Flexor plantar responses bilaterally. SENSORY: Intact to LT/vibration throughout, no extinction to double simultaneous stimuli (diminished in BLEs up to the knees) COORDINATION: No dysmetria or ataxia on [id number]-ht-opcc bilaterally. Normal True bilaterally. +intention tremor, mild asterixis GAIT: Deferred due to physical status (required two person assist to stand from chair) NIH STROKE SCALE 1A. Level of Consciousness (0-3) = 0 1B. LOC Questions (0-2) = 0 1C. LOC Commands (0-2) = 0 2. Best Horizontal Gaze (0-2) = 0 3. Visual Downing (0-3) = 0 4. Facial Palsy (0-3) = 0 5. Motor Arm Right (0-4) = 0 Left (0-4) = 0 6. Motor Leg Right (0-4) = 0 Left (0-4) = 0 7. Limb Ataxia (0-2) = 0 8. Sensory (0-2) = 0 9. Best Language (0-3) = 0 10. Dysarthria (0-2) = 0 11. Extinction and Inattention (0-2) = 0 NIHSS TOTAL = 0 Results & Data ([facility]) Vital Signs (Past 12 Hours) Vital Signs Temp Pulse Resp BP BP Pulse Ox 04/13/21 10:56 36.7 C 75 19 167/80 H 93 04/13/21 07:49 37.0 C 78 19 174/76 H 98 04/13/21 03:51 36.9 C 71 17 161/79 H 97 PG Care Time/CCT Total # of Minutes Spent Total Time Spent with Patient: Total time spent is greater than 50% in coordination of care (as documented) at patient's floor/unit and/or counseling patient: Coding Level of Care Code 41636 Initial Inpt Care Lvl 3 Diagnoses ICH (intracerebral hemorrhage) I61.9 Diabetes type 2, controlled E11.21; Z79.4 Diabetes mellitus complication detail: with nephropathy Diabetes mellitus complication status: with kidney complications Diabetes mellitus intermission coordinator insulin use: with intermission coordinator use Hyperlipidemia E78.2 Hyperlipidemia type: mixed hyperlipidemia Hypertension I10 Hypertension type: essential hypertension Status post liver transplantation Z94.4 CKD (chronic kidney disease) N18.32 Chronic kidney disease stage: stage 3 (moderate) Chronic kidney disease stage 3 subtype: stage 3b (GFR 30-44) (1) Hyperlipidemia Hyperlipidemia type: mixed hyperlipidemia Qualified Code(s): E78.2 - Mixed hyperlipidemia (2) CKD (chronic kidney disease) Chronic kidney disease stage: stage 3 (moderate) Chronic kidney disease stage 3 subtype: stage 3b (GFR 30-44) Qualified Code(s): N18.32 - Chronic kidney disease, stage 3b (3) Diabetes type 2, controlled Diabetes mellitus complication detail: with nephropathy Diabetes mellitus complication status: with kidney complications Diabetes mellitus residential insulin use: with residential use Qualified Code(s): E11.21 - Type 2 diabetes mellitus with diabetic nephropathy; Z79.4 - group home (current) use of insulin (4) Hypertension Hypertension type: essential hypertension Qualified Code(s): I10 - Essential (primary) hypertension
--- NOTE | 2021-04-13 15:18 | Electrocardiogram Report ---
Test Reason : Blood Pressure : / mmHG Vent. Rate : 062 BPM Atrial Rate : 062 BPM P-R Int : 166 ms QRS Dur : 064 ms QT Int : 444 ms P-R-T Axes : 046 019 -20 degrees QTc Int : 450 ms Normal sinus rhythm T wave abnormality, consider inferior ischemia Abnormal ECG When compared with ECG of 28-AUG-2018 03:12, No significant change was found Confirmed by Popeye Vera ([id number]) on 04/13/2021 3:17:56 PM Referred By: Indira Rob Confirmed By:Narendra Vera
[2021-04-13] MEDS: NYSTATIN OINT 15 GM TUBE EXT SCH (20:35)
[2021-04-13] MEDS: traZODone HCL 100 MG TAB PO SCH (20:37)
[2021-04-13] MEDS: FLUCONAZOLE 100 MG TAB PO SCH (20:37)
--- NOTE | 2021-04-13 21:02 | Hospitalist Progress Note ---
Date of Service April 13, 2021 Assessment & Plan (1) ICH (intracerebral hemorrhage): Plan: 1) Cerebrovascular accident (CVA) of thalamus: Plan: 75yo female with a history of CVA, DM2, HTN, HLD, cirrhosis secondary to MONTGOMERY s/p liver transplant (2018), and hip fracture (2019) presents with intraparenchymal hemorrhage. Acute intraparenchymal hemorrhage CT head showing 6mm acute intraparenchymal hemorrhage of the left thalamus with mild surrounding vasogenic edema in addition to a subcentimeter [id number] lacunar infarct of the right thalamus (new from 02/2020) ED provider discussed with neurology; advised admission for BP control, repeat CT head this evening, consider CTA to evaluate for aneurysm, consider MRI, no immediate neurosurgical intervention indicated Admit to PCU telemetry BP 160-200/70-90 in ED, BP management: First-line: labetalol IV 10mg q4h prn SBP>140 Second-line: hydralazine IV 10mg q4h prn SBP>140 unresponsive to labetalol SBP goal 110-140 Appreciate input from GI Holding home antihypertensives, ASA, atorvastatin will obtain MRA. Elevate head of bed to 30 degrees Neurology consulted PT/OT ordered, speech eval ordered Fall precautions Neuro checks q2h HTN See above DM2 HbA1c 6.5% (11/03/20), Patient's home regimen held on admission Continue sliding-scale insulin, hypoglycemic protocol BSG checks q6h while NPO, D5NS@80mL/hr while NPO (two bags ordered on admission, reevaluate in AM) HLD Statin held as above Lipid profile pending History of liver transplant for liver cirrhosis secondary to MONTGOMERY Transaminases wnl Continue home tacrolimus, entecavir CKD Creatinine 1.64 on admission, baseline 1.3-1.6 Avoid nephrotoxins Osteoporosis Continue home denosumab GERD Continue home omeprazole Chronic vulvitis Continue home fluconazole, nystatin cream prn itching, triamcinolone prn itching Insomnia Continue home trazodone (2) Diabetes type 2, controlled: (3) Kidney stone: (4) 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 Review of Systems Review of Systems: All systems reviewed & are unremarkable except as noted in HPI & below Physical Exam Physical Exam: Constitutional: well-appearing, no acute distress, laying comfortably in bed HEENT: NCAT, no conjunctival injection, MMM CV: regular rhythm, grade 3/6 systolic crescendo-decrescendo murmur appreciated, extremities well-perfused, no LE edema Resp: CTABL, no wheezes/rales/rhonchi appreciated, no increased work of breathing, occasional coughing GI: soft, nondistended, nontender, BS normoactive MSK: no gross deformities appreciated Skin: warm, dry, no rash appreciated Neuro: AOx4, PERRLA, CN2-12 grossly intact, no focal neurological deficits appreciated, upper extremity strength 5/5 bilaterally, lower extremity strength 4/5 bilaterally, speech not slurred Psych: cooperative, pleasant, appropriate rate/volume/quantity of speech Results & Data Results & Data ([facility]) Vital Signs (Past 12 Hours) Vital Signs Temp Pulse Resp BP Pulse Ox 04/13/21 19:56 37.5 C 71 18 213/75 H 99 04/13/21 10:56 36.7 C 75 19 167/80 H 93 PG Care Time/CCT Total # of Minutes Spent Total Time Spent with Patient: Total time spent is greater than 50% in coordination of care (as documented) at patient's floor/unit and/or counseling patient: Coding Level of Care Code 08811 Subseq Hosp Care Lvl 2 Diagnoses ICH (intracerebral hemorrhage) I61.9 Diabetes type 2, controlled E11.21; Z79.4 Diabetes mellitus care home insulin use: with care home use Diabetes mellitus complication status: with kidney complications Diabetes mellitus complication detail: with nephropathy Kidney stone N20.0 Liver cirrhosis secondary to MONTGOMERY K75.81; K74.60 Sleep apnea G47.30 Hypertension I10 Hypertension type: essential hypertension CVA (cerebral vascular accident) I63.9 Time Spent (min) 25 (1) Diabetes type 2, controlled Diabetes mellitus care home insulin use: with care home use Diabetes mellitus complication status: with kidney complications Diabetes mellitus complication detail: with nephropathy Qualified Code(s): E11.21 - Type 2 diabetes mellitus with diabetic nephropathy; Z79.4 - [facility] (current) use of insulin (2) Hypertension Hypertension type: essential hypertension Qualified Code(s): I10 - Essential (primary) hypertension
[2021-04-13] MEDS: METOPROLOL TARTRATE 50 MG TAB PO SCH (22:08)
[2021-04-14] MEDS: INSULIN ASPART 100 UNITS/ML 3 ML PEN SC SCH ×5 (05:57→21:18)
[2021-04-14] MEDS: LABETALOL HCL IV 5 MG/ML 20ML IV PRN ×2 (05:59→16:19)
--- NOTE | 2021-04-14 08:16 | Magnetic Resonance Report ---
MR angio head wo con HISTORY: 75 years-old Female r/o aneurysm acute dizziness COMPARISON: Brain MRI and head CT 04/12/2021 TECHNIQUE: MRA of the head was obtained without the use of IV contrast utilizing 3-D [id number] s equencing with MIP reformats. All measurements were obtained according to NASCET criteria. FINDINGS: The imaged internal carotid arteries are widely patent. The middle and anterior cerebral arteries are patent. Hypoplastic right A1 segment is likely developmental. The distal vertebral arteries are nova nt. The basilar and posterior cerebral arteries are also patent. IMPRESSION: Unremarkable MRA of the head. ACT 112: Negative or not required by law. The above report was generated using voice recognition software. It may contain grammatical, syntax o r spelling errors. Electronically signed by: Jak Chaney M.D. 04/14/2021 8:14 AM
[2021-04-14] MEDS: METOPROLOL TARTRATE 50 MG TAB PO SCH ×2 (08:18→21:12)
[2021-04-14] MEDS: PANTOprazole 40 MG TAB PO SCH (08:19)
[2021-04-14] MEDS: MAGNESIUM OXIDE 400 MG TAB PO SCH (08:19)
--- NOTE | 2021-04-14 08:45 | Neurology Progress Note ---
Date of Service April 14, 2021 Assessment & Plan (1) ICH (intracerebral hemorrhage): Plan: Goldie Augustine is a 75 yo woman w/ PMH of HTN, HLD, h/o kidney stone, CKD, h/o stroke with residual balance issues and h/o liver transplant who p/t [facility] with subacute onset of swallowing difficulty and gait difficulties Symptom localization: left thalamus Stroke mechanism: uncontrolled HTN most likely Stroke WorkUp: - CT head: shows small left thalamic hemorrhage with no IVH, hypodensity in the right thalamus representing chronic encephalomalacia from prior stroke, and moderate generalized atrophy. Repeat CTH stable. - MRI brain: shows very small acute infarct in the left thalamus associated with the thalamic hemorrhage, chronic infarct in the right thalamus, multiple lobar microhemorrhages (5) the largest being in the left parietal lobe, re- demonstration of the left thalamic hemorrhage, moderate SVID with moderate generalized atrophy and ex vacuo dilation - MRA head: no LVO, high grade stenosis or aneurysm noted - Telemetry: NSR so far - A1c: 6.5 - FLP: 60 Further work-up for confusion: B12 673, TSH WNL, blood cultures pending, tacrolimus level pending Stroke Management: - Acute treatment: BP control - Continuous cardiac monitoring - Vitals, Neurochecks, NIHSS per unit routine - BP parameters: SBP CAP 140, IV labetalol or nicardipine gtt to achieve CAP - Obtain MRA head and neck without contrast to r/o underlying vascular lesion at site of ICH - Consult speech, PT, OT for supportive management - Will career technical counselor concerning stroke education, smoking cessation, healthy diet, physical activity, weight loss - Follow up with PCP for assistance with outpatient goals (BP <130/80, LDL <70, A1c <7) - Follow up in neurology clinic in 6-8 weeks with one of the PAs (does appear that she may have early Lewy body dementia from her exam and history) Secondary Stroke Prevention: - Antiplatelet: hold in setting of ICH. Would continue to hold for 30 days post hospitalization, repeat CTH as an outpatient (PCP can order) to ensure stability and then restart if risk of ischemic stroke is deemed higher than risk of further microhemorrhages (meets criteria for CAA) - Anticoagulation: Not indicated at this time - Statin: continue home atorvastatin 40mg daily HTN: - BP parameters, as above FEN/GI: - Diet: NPO until cleared by Speech evaluation - Monitor lytes and replete PRN Glucose Control: - Sliding scale insulin and accuchecks per primary team to avoid hyperglycemia # Fatigue: non-specific symptom unlikely to be related to her CTH findings - pending: blood culture and tacrolimus levels Thank you for this interesting consult. Plan of care was discussed with primary team. Please call with any questions. She is stable for discharge from a neurology standpoint. (2) Diabetes type 2, controlled: (3) Hyperlipidemia: (4) Hypertension: (5) Status post liver transplantation: (6) CKD (chronic kidney disease): Admission and Anticipated Discharge Date Admission Date: April 12, 2021 Subjective NAEs overnight. She reports having a mild panic attack and possible visual hallucination overnight that was scary to her (thought that she needed to get out of bed because she had missed seeing the doctors rounding). Reports ongoing visual hallucinations intermittently for several months. Also notes that original symptoms of weakness, nausea and fatigue started about 3 weeks ago after returning from a trip to [place] (was not COVID tested at that time). Review of Systems Review of Systems: 14 point review of systems completed and negative except as in HPI. Results & Data ([facility]) Vital Signs (Past 12 Hours) Vital Signs Temp Pulse Pulse Resp BP Pulse Ox 04/14/21 07:39 36.8 C 76 18 171/79 H 97 04/14/21 05:00 36.6 C 70 18 167/75 H 98 04/14/21 00:17 77 04/14/21 00:13 36.8 C 66 18 181/77 H 99 04/13/21 22:07 77 195/77 H Exam (Neuro) 2 Physical Exam: General Exam: GEN: NAD, sitting in chair HEENT: No conjunctival injection, no rhinorrhea CV: RRR on monitor, no significant edema. PULM: Nonlabored respirations on room air. Neuro Exam: MS: Awake and Alert. Oriented to person, place, and month but not year. Speech fluent and appropriate without dysarthria or paraphasic errors. Language intact including naming, comprehension, repetition. Cognition and memory grossly intact. Attention intact. No neglect. CN: Visual barrientos full. Unable to visualize fundi on fundoscopic exam. PERRLA OU. EOMI without nystagmus. Facial sensation intact to LT. Facial muscles full and symmetric. Hearing intact to conversation. Uvula midline with symmetric palatal elevation. Shoulder shrug normal. Tongue midline. MOTOR: Normal bulk and tone. No pronator drift. BUE strength 5/5 at deltoids, biceps, triceps, wrist flexors and extensors, and finger flexors bilaterally. B LE strength 5-/5 at iliopsoas, hamstrings, quadriceps, tibialis anterior, and gastrocnemius bilaterally. REFLEXES: 1+ at biceps, triceps, brachioradialis, trace patella, and absent Achilles bilaterally. Flexor plantar responses bilaterally. SENSORY: Intact to LT/vibration throughout, no extinction to double simultaneous stimuli (diminished in BLEs up to the knees) COORDINATION: No dysmetria or ataxia on [id number] bilaterally. Normal True bilaterally. +intention tremor, mild asterixis GAIT: Deferred due to physical status (required two person assist to stand from chair) NIH STROKE SCALE 1A. Level of Consciousness (0-3) = 0 1B. LOC Questions (0-2) = 0 1C. LOC Commands (0-2) = 0 2. Best Horizontal Gaze (0-2) = 0 3. Visual Barrientos (0-3) = 0 4. Facial Palsy (0-3) = 0 5. Motor Arm Right (0-4) = 0 Left (0-4) = 0 6. Motor Leg Right (0-4) = 0 Left (0-4) = 0 7. Limb Ataxia (0-2) = 0 8. Sensory (0-2) = 0 9. Best Language (0-3) = 0 10. Dysarthria (0-2) = 0 11. Extinction and Inattention (0-2) = 0 NIHSS TOTAL = 0 PG Care Time/CCT Total # of Minutes Spent Total Time Spent with Patient: Total time spent is greater than 50% in coordination of care (as documented) at patient's floor/unit and/or counseling patient: Coding Level of Care Code 23150 Subseq Hosp Care Lvl 3 Diagnoses ICH (intracerebral hemorrhage) I61.9 Diabetes type 2, controlled E11.21; Z79.4 Diabetes mellitus complication detail: with nephropathy Diabetes mellitus complication status: with kidney complications Diabetes mellitus fpc insulin use: with director long term care use Hyperlipidemia E78.2 Hyperlipidemia type: mixed hyperlipidemia Hypertension I10 Hypertension type: essential hypertension Status post liver transplantation Z94.4 CKD (chronic kidney disease) N18.32 Chronic kidney disease stage: stage 3 (moderate) Chronic kidney disease stage 3 subtype: stage 3b (GFR 30-44) (1) Hyperlipidemia Hyperlipidemia type: mixed hyperlipidemia Qualified Code(s): E78.2 - Mixed hyperlipidemia (2) CKD (chronic kidney disease) Chronic kidney disease stage: stage 3 (moderate) Chronic kidney disease stage 3 subtype: stage 3b (GFR 30-44) Qualified Code(s): N18.32 - Chronic kidney disease, stage 3b (3) Diabetes type 2, controlled Diabetes mellitus complication detail: with nephropathy Diabetes mellitus complication status: with kidney complications Diabetes mellitus fpc insulin use: with director long term care use Qualified Code(s): E11.21 - Type 2 diabetes mellitus with diabetic nephropathy; Z79.4 - terminal computer operator (current) use of insulin (4) Hypertension Hypertension type: essential hypertension Qualified Code(s): I10 - Essential (primary) hypertension
[2021-04-14] MEDS: TACROLIMUS 0.5 MG CAP PO SCH ×2 (10:40→21:12)
[2021-04-14] MEDS ORDERED: Nursing to Pharmacy Communication SCH (11:30)
[2021-04-14] MEDS ORDERED: LOSARTAN POTASSIUM 50 MG TAB PO SCH (21:00)
--- NOTE | 2021-04-14 21:01 | Hospitalist Progress Note ---
Date of Service April 14, 2021 Assessment & Plan (1) ICH (intracerebral hemorrhage): Plan: 1) Cerebrovascular accident (CVA) of thalamus: Plan: 75yo female with a history of CVA, DM2, HTN, HLD, cirrhosis secondary to [place] s/p liver transplant (2018), and hip fracture (2019) presents with intraparenchymal hemorrhage. Acute intraparenchymal hemorrhage CT head showing 6mm acute intraparenchymal hemorrhage of the left thalamus with mild surrounding vasogenic edema in addition to a subcentimeter [id number]-bclrbmc lacunar infarct of the right thalamus (new from 02/2020) ED provider discussed with neurology; advised admission for BP control, repeat CT head this evening, consider CTA to evaluate for aneurysm, consider MRI, no immediate neurosurgical intervention indicated Admit to PCU telemetry BP 160-200/70-90 in ED, BP management: First-line: labetalol IV 10mg q4h prn SBP>140 Second-line: hydralazine IV 10mg q4h prn SBP>140 unresponsive to labetalol SBP goal 110-140 Appreciate input from GI Holding home antihypertensives, ASA, atorvastatin MRA obtained. -Discharged held as blood pressure is above goal. will restart hydralazine. Elevate head of bed to 30 degrees Neurology consulted PT/OT ordered, speech eval ordered Fall precautions Neuro checks q2h HTN See above DM2 HbA1c 6.5% (11/03/20), Patient's home regimen held on admission Continue sliding-scale insulin, hypoglycemic protocol BSG checks q6h while NPO, D5NS@80mL/hr while NPO (two bags ordered on admission, reevaluate in AM) HLD Statin held as above Lipid profile pending History of liver transplant for liver cirrhosis secondary to [place] Transaminases wnl Continue home tacrolimus, entecavir CKD Creatinine 1.64 on admission, baseline 1.3-1.6 Avoid nephrotoxins Osteoporosis Continue home denosumab GERD Continue home omeprazole Chronic vulvitis Continue home fluconazole, nystatin cream prn itching, triamcinolone prn itching Insomnia Continue home trazodone (2) Diabetes type 2, controlled: (3) Kidney stone: (4) 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 Updated patient, had extensive talk with patient. Review of Systems Review of Systems: All systems reviewed & are unremarkable except as noted in HPI & below Physical Exam Physical Exam: Constitutional: well-appearing, no acute distress, laying com fortably in bed HEENT: NCAT, no conjunctival injection, MMM CV: regular rhythm, grade 3/6 systolic crescendo-decrescendo murmur appreciated, extremities well-perfused, no LE edema Resp: CTABL, no wheezes/rales/rhonchi appreciated, no increased work of breathing, occasional coughing GI: soft, nondistended, nontender, BS normoactive MSK: no gross deformities appreciated Skin: warm, dry, no rash appreciated Neuro: AOx4, PERRLA, CN2-12 grossly intact, no focal neurological deficits appreciated, upper extremity strength 5/5 bilaterally, lower extremity strength 4/5 bilaterally, speech not slurred Psych: cooperative, pleasant, appropriate rate/volume/quantity of speech Results & Data Results & Data ([facility]) Vital Signs (Past 12 Hours) Vital Signs Temp Pulse Pulse Resp BP Pulse Ox 04/14/21 19:46 37.0 C 73 18 160/82 H 91 04/14/21 15:59 37.1 C 66 18 174/84 H 95 04/14/21 14:30 67 04/14/21 11:38 37.2 C 64 18 162/82 H 96 PG Care Time/CCT Total # of Minutes Spent Total Time Spent with Patient: Total time spent is greater than 50% in coordination of care (as documented) at patient's floor/unit and/or counseling patient: Coding Level of Care Code 90107 Subseq Hosp Care Lvl 3 Diagnoses ICH (intracerebral hemorrhage) I61.9 Diabetes type 2, controlled E11.21; Z79.4 Diabetes mellitus complication detail: with nephropathy Diabetes mellitus complication status: with kidney complications Diabetes mellitus chcf insulin use: with dedicated intermodal truck driver use Kidney stone N20.0 Liver cirrhosis secondary to [place] K75.81; K74.60 Sleep apnea G47.30 Hypertension I10 Hypertension type: essential hypertension CVA (cerebral vascular accident) I63.9 Time Spent (min) 35 (1) Diabetes type 2, controlled Diabetes mellitus complication detail: with nephropathy Diabetes mellitus complication status: with kidney complications Diabetes mellitus chcf insulin use: with dedicated intermodal truck driver use Qualified Code(s): E11.21 - Type 2 diabetes mellitus with diabetic nephropathy; Z79.4 - retirement (current) use of insulin (2) Hypertension Hypertension type: essential hypertension Qualified Code(s): I10 - Essential (primary) hypertension
[2021-04-14] MEDS: NYSTATIN OINT 15 GM TUBE EXT SCH (21:12)
[2021-04-14] MEDS: traZODone HCL 100 MG TAB PO SCH (21:12)
[2021-04-14] MEDS: FLUCONAZOLE 100 MG TAB PO SCH (21:13)
[2021-04-14] MEDS: hydrALAZINE HCL 25 MG TAB PO SCH (21:13)
--- NOTE | 2021-04-14 21:44 | Billing Data ---
Date of Service April 12, 2021 Coding Level of Care Code 31944 Initial Inpt Care Lvl 3
[2021-04-15] MEDS: LABETALOL HCL IV 5 MG/ML 20ML IV PRN (03:54)
[2021-04-15] MEDS: INSULIN ASPART 100 UNITS/ML 3 ML PEN SC SCH ×2 (08:22→12:41)
[2021-04-15] MEDS: MAGNESIUM OXIDE 400 MG TAB PO SCH (08:31)
[2021-04-15] MEDS: METOPROLOL TARTRATE 50 MG TAB PO SCH (08:31)
[2021-04-15] MEDS: hydrALAZINE HCL 25 MG TAB PO SCH ×2 (08:31→14:51)
[2021-04-15] MEDS: TACROLIMUS 0.5 MG CAP PO SCH (08:31)
[2021-04-15] MEDS: PANTOprazole 40 MG TAB PO SCH (08:31)
[2021-04-15] MEDS ORDERED: amLODIPine BESYLATE 5 MG TAB PO ONE (12:34)
--- NOTE | 2021-04-15 19:51 | Discharge Summary ---
Date of Service April 15, 2021 Admission HPI Per Admitting Provider 75yo female with a history of CVA, DM2, HTN, HLD, cirrhosis secondary to [facility] s/p liver transplant (2019), and hip fracture (2019) presents with intraparenchymal hemorrhage. Patient reports gradually worsening gait instability for the past few weeks which has been acutely worsening over the past week, without fall. Patient was discussing this with PCP on 04/11, who then ordered an outpatient CT, which revealed a 6mm intraparenchymal hemorrhage of the left thalamus with mild surrounding vasogenic edema. Patient endorses increased difficulty swallowing over the past few weeks and has been gagging on her pills. Patient endorses vertigo over the past few weeks, as well as chronic nausea and poor appetite since her liver transplant. Patient has been monitoring her BP at home but does not have the numbers with her. Patient had a liver transplant two year years ago at [facility] and is on tacrolimus. Patient also has had a cough for "maybe a little over a year" that was in the process of being worked up by [facility], patient notes that her physician thinks it is "valley fever". Patient denies current or recent fever, chills, chest pain, palpitations, SOB, abdominal pain, vomiting, constipation, diarrhea, dysuria, numbness, tingling, or other symptoms. Principal Diagnosis ICH Discharge Exam Constitutional: well-appearing, no acute distress, laying comfortably in bed HEENT: NCAT, no conjunctival injection, MMM CV: regular rhythm, grade 3/6 systolic crescendo-decrescendo murmur appreciated, extremities well-perfused, no LE edema Resp: CTABL, no wheezes/rales/rhonchi appreciated, no increased work of breathing, occasional coughing GI: soft, nondistended, nontender, BS normoactive MSK: no gross deformities appreciated Skin: warm, dry, no rash appreciated Neuro: AOx4, PERRLA, CN2-12 grossly intact, no focal neurological deficits appreciated, upper extremity strength 5/5 bilaterally, lower extremity strength 4/5 bilaterally, speech not slurred Psych: cooperative, pleasant, appropriate rate/volume/quantity of speech Discharge Data Allergies Allergy/AdvReac Type Severity Reaction Status Date / Time latex Allergy Intermediate ITCHING Verified 04/12/21 16:31 AND LOCALIZED SWELLING Penicillins Allergy Intermediate RASH Verified 04/12/21 16:31 amlodipine Allergy Mild swelling Verified 04/12/21 16:31 iodine Allergy Mild RASH Verified 04/12/21 16:31 lisinopril AdvReac Intermediate cough Verified 04/12/21 16:31 Consultations 04/12/21 17:46 ED Decision to Admit Stat 04/12/21 20:24 Consult Neurology Routine Ordered Studies 04/12/21 21:00 CT head/brain wo con Urgent 04/12/21 21:30 MR brain wo con Routine 04/13/21 15:34 MR angio head wo con Routine Hospital Course (1) ICH (intracerebral hemorrhage): 1) Cerebrovascular accident (CVA) of thalamus: Plan: 75yo female with a history of CVA, DM2, HTN, HLD, cirrhosis secondary to [place] s/p liver transplant (2018), and hip fracture (2018) presents with intraparenchymal hemorrhage. Acute intraparenchymal hemorrhage CT head showing 6mm acute intraparenchymal hemorrhage of the left thalamus with mild surrounding vasogenic edema in addition to a subcentimeter jrqsvbml-ta-oavylng lacunar infarct of the right thalamus (new from 02/2020) ED provider discussed with neurology; advised admission for BP control, repeat CT head this evening, consider CTA to evaluate for aneurysm, consider MRI, no immediate neurosurgical intervention indicated Admit to PCU telemetry BP 160-200/70-90 in ED, BP management: First-line: labetalol IV 10mg q4h prn SBP>140 Second-line: hydralazine IV 10mg q4h prn SBP>140 unresponsive to labetalol SBP goal 110-140 Appreciate input from GI Holding home antihypertensives, ASA, atorvastatin MRA obtained. -Discharged held as blood pressure is above goal. will restart hydralazine. Elevate head of bed to 30 degrees Neurology consulted PT/OT ordered, speech eval ordered Fall precautions Neuro checks q2h Appreciate input from Neurology - Acute treatment: BP control - Continuous cardiac monitoring - Vitals, Neurochecks, NIHSS per unit routine - BP parameters: SBP CAP 140, IV labetalol or nicardipine gtt to achieve CAP - Obtain MRA head and neck without contrast to r/o underlying vascular lesion at site of ICH - Consult speech, PT, OT for supportive management - Will auto travel counselor concerning stroke education, smoking cessation, healthy diet, physical activity, weight loss - Follow up with PCP for assistance with outpatient goals (BP <130/80, LDL <70, A1c <7) - Follow up in neurology clinic in 6-8 weeks with one of the PAs (does appear that she may have early Lewy body dementia from her exam and history) Secondary Stroke Prevention: - Antiplatelet: hold in setting of ICH. Would continue to hold for 30 days post hospitalization, repeat CTH as an outpatient (PCP can order) to ensure stability and then restart if risk of ischemic stroke is deemed higher than risk of further microhemorrhages (meets criteria for CAA) - Anticoagulation: Not indicated at this time - Statin: continue home atorvastatin 40mg daily will discharge with amlidipine. D/W patient who is agreeable to try medication. SBP 140s sytolic at discharge. HTN See above DM2 HbA1c 6.5% (11/03/20), Patient's home regimen held on admission Continue sliding-scale insulin, hypoglycemic protocol BSG checks q6h while NPO, D5NS@80mL/hr while NPO (two bags ordered on admission, reevaluate in AM) HLD Statin held as above Lipid profile pending History of liver transplant for liver cirrhosis secondary to [place] Transaminases wnl Continue home tacrolimus, entecavir CKD Creatinine 1.64 on admission, baseline 1.3-1.6 Avoid nephrotoxins Osteoporosis Continue home denosumab GERD Continue home omeprazole Chronic vulvitis Continue home fluconazole, nystatin cream prn itching, triamcinolone prn itching Insomnia Continue home trazodone (2) Diabetes type 2, controlled: (3) Kidney stone: (4) Liver cirrhosis secondary to [place]: (5) Sleep apnea: (6) Hypertension: (7) CVA (cerebral vascular accident): Total Time Total Time Spent Total Time Spent (In Minutes): 32 Discharge Plan Discharge Items Patient Disposition: Home - Home Health Services Reason For Visit: INTRAPARENCHYMAL HEMORRHAGE Discharge Diagnosis: intraparenchymal hemorrhage Activity: Resume your previous activity Non-emergency contact: Primary Care Provider Call non-emergency contact if: you have any medication questions Follow-up/Referrals: Indira Jordan MD [Primary Care Provider] - Diet: Heart Healthy Addtl Attending Provider Instructions: You were hospitalized for a brain bleed. We kep you rblood pressure under control with medications. We will add amlodipine at a low dose at home. - Follow up with Primary care for assistance with outpatient goals (BP <130/80, LDL <70, A1c <7) in 1-2 weeks. - Follow up in neurology clinic in 6-8 weeks with one of the PAs Would continue to hold aspirin for 30 days after discharge Pending Studies at Discharge: No Stand-Alone Forms: My [facility] Blog[employer], Smoking Cessation Medications and DC Order Prescriptions: Continued (DME) pen needle, diabetic [BD Ultra-Fine Susan Pen Needle] 32 gauge x 5/32" needle See Rx Instructions .ROUTE .MEDSUPPLY Qty: 500 RF: 3 metoprolol tartrate 50 mg tablet 75 mg PO BID Qty: 180 RF: 3 omeprazole 20 mg capsule,delayed release(DR/EC) 20 mg PO QAM Qty: 90 RF: 3 trazodone 50 mg tablet 100 mg PO HS Qty: 60 RF: 5 nystatin 100,000 unit/gram cream 1 appln TOP TID PRN (Reason: itching) Qty: 30 RF: 3 triamcinolone acetonide 0.1 % ointment 1 appln TOP TID PRN (Reason: itching) Qty: 30 RF: 3 (DME) FreeStyle Lite Strips Strip See Rx Instructions .ROUTE .MEDSUPPLY Qty: 10 RF: 0 fluconazole 200 mg tablet 200 mg PO QPM RF: 0 Basaglar KwikPen U-100 Insulin 100 unit/mL (3 mL) insulin pen 20 - 40 units SUBCUT AMPM RF: 0 biotin 5,000 mcg tablet, sublingual 5,000 mcg sublingual DAILY RF: 0 insulin lispro [Humalog KwikPen Insulin] 100 unit/mL insulin pen 15 unit SUBCUT TID RF: 0 atorvastatin 40 mg tablet 40 mg PO QPM RF: 0 magnesium oxide 400 mg magnesium tablet 400 mg PO DAILY RF: 0 tacrolimus 0.5 mg capsule 0.5 mg PO BID RF: 0 cholecalciferol (vitamin D3) 125 mcg (5,000 unit) capsule 125 mcg PO DAILY Qty: 90 RF: 2 entecavir 0.5 mg tablet 0.5 mg PO QAM RF: 0 Prolia 60 mg/mL syringe 60 mg subcut UD RF: 0 losartan 100 mg tablet 100 mg PO QPM RF: 0 Discontinued aspirin [Adult Low Dose Aspirin] 81 mg tablet,delayed release (DR/EC) 81 mg PO QPM RF: 0 No Action hydralazine 50 mg tablet 100 mg PO TID 90 Days Qty: 540 RF: 3 Discharge Orders: Discharge Order (Routine); Ordered 04/15/21 Ordered By: Royal Storey Admission Data Admit Date/Time: 04/12/21 19:05 Attending Provider: Royal Storey Admit Provider: David Murillo Primary Care Provider: Indira Jordan V. Other Providers: Royal Storey ; Navid Hernandez ; Akil Luna Christina R. ; Laura Carrero Other Interventions: Discharge Summary Assessment (RN) Last Done: 04/15/21 13:06 Coding Level of Care Code D/C DAY MANAGEMENT >30 MINS Diagnoses ICH (intracerebral hemorrhage) I61.9 Diabetes type 2, controlled E11.21; Z79.4 Diabetes mellitus complication detail: with nephropathy Diabetes mellitus complication status: with kidney complications Diabetes mellitus intermodal dispatcher insulin use: with intermodal dispatcher use Kidney stone N20.0 Liver cirrhosis secondary to [place] K75.81; K74.60 Sleep apnea G47.30 Hypertension I10 Hypertension type: essential hypertension CVA (cerebral vascular accident) I63.9
== END 2021-04-15 16:14 | disposition home health service (06) | DRG 64 ==
LOC: ED 15:47 → 2S 19:05
DX: R42 Dizziness and giddiness; I63.81 Other cerebral infarction due to occlusion or stenosis of small artery; K21.9 Gastro-esophageal reflux disease without esophagitis; R53.83 Other fatigue; G47.30 Sleep apnea, unspecified; I61.9 Nontraumatic intracerebral hemorrhage, unspecified; Z91.040 Latex allergy status; E78.2 Mixed hyperlipidemia; M81.0 Age-related osteoporosis without current pathological fracture; Z79.899 Other long term (current) drug therapy; R53.1 Weakness; E11.22 Type 2 diabetes mellitus with diabetic chronic kidney disease; Z79.4 Long term (current) use of insulin; Z91.09 Other allergy status, other than to drugs and biological substances; N18.32 Chronic kidney disease, stage 3b; Z94.4 Liver transplant status; N20.0 Calculus of kidney; Z79.82 Long term (current) use of aspirin; G47.00 Insomnia, unspecified; G93.6 Cerebral edema; I69.398 Other sequelae of cerebral infarction; Z88.8 Allergy status to other drugs, medicaments and biological substances; I12.9 Hypertensive chronic kidney disease with stage 1 through stage 4 chronic kidney disease, or unspecified chronic kidney disease; K75.81 Nonalcoholic steatohepatitis (NASH); N76.3 Subacute and chronic vulvitis; R26.89 Other abnormalities of gait and mobility; Z88.0 Allergy status to penicillin; K74.60 Unspecified cirrhosis of liver